=== PATIENT | female | born 1950 | race Caucasian/White ===

== ENCOUNTER 2017-09-07 05:24 | Emergency (ER) | payer MEDICARE, BC ==
[~2017-09-07] VITALS: Ht 165.1 cm; Wt 73.1 kg
[2017-09-07 05:33] VITALS: BP 172/86; PULSE 77; RESP 22; TEMP 97.7; O2SAT 99
[2017-09-07 05:41] VITALS: BP 172/86; PULSE 77; RESP 20; TEMP 97.7; O2SAT 99
[2017-09-07] MEDS ORDERED: SODIUM CHLOR 0.9% 1000 ML INJ 1,000 ML IV SCH (06:05)
[2017-09-07] MEDS ORDERED: HYDROmorphone HCL PF 2 MG/ML VIAL IVS ONE (06:15)
[2017-09-07] MEDS ORDERED: ONDANSETRON HCL 4 MG/2 ML VIAL IVP ONE (06:15)
[2017-09-07] MEDS ORDERED: SODIUM CHLORIDE 0.9% FLUSH 10 ML FLUSH IV FLUSH PRN (06:15)
--- NOTE | 2017-09-07 06:17 | PD ---
HPI Chief Complaint: Flank/Kidney Pain Time Seen by Provider: 06:03 Travel History International Travel<30 days: No Contact w/Intl Traveler<30days: No Traveled to known affect area: No History of Present Illness HPI The patient is a 67-year-old female that had nausea most of the day yesterday. At 10 PM he started vomiting. She denies any blood in the vomitus or stool. She denies any fever. She denies any diarrhea. [facility] Past Medical History High Cholesterol: Yes Diverticulitis: Yes Hypertension: Yes Influenza Vaccination: Yes ?: Not Past Surgical History Gynecologic Surgery: Yes (Radical Hysterectomy for CA) Other Surgery: Yes (Sigmoid colon resection) Social History Alcohol Use: Yes (Occasional ) Tobacco Use: No Substance Use: No Allergies-Medications (Allergen,Severity, Reaction): Coded Allergies: meperidine (Verified Allergy, Unknown, vomiting, 09/07/17) niacin (Verified Allergy, Unknown, hives, 09/07/17) Reported Meds & Prescriptions Reported Meds & Active Scripts Active Reported Zolpidem (Zolpidem Tartrate) 5 Mg Tab 5 Mg PO HS PRN Simvastatin 40 Mg Tab 40 Mg PO HS Atenolol 50 Mg Tab 50 Mg PO DAILY Amlodipine (Amlodipine Besylate) 5 Mg Tab 5 Mg PO DAILY Levothyroxine (Levothyroxine Sodium) 75 Mcg Tab 75 Mcg PO DAILY Diovan Hct (Valsartan-Hydrochlorothiazide) 320-25 Mg Tab 1 Tab PO DAILY Review of Systems Except as stated in HPI: all other systems reviewed are Neg Physical Exam Narrative GENERAL: The patient is alert, oriented 3 in moderate apparent distress with her right flank pain. Her vital signs show blood pressure 172/86 but otherwise are normal. SKIN: Focused skin assessment warm/dry. HEAD: Atraumatic. Normocephalic. EYES: Pupils equal and round. No scleral icterus. No injection or drainage. ENT: No nasal bleeding or discharge. Mucous membranes pink and moist. NECK: Trachea midline. No JVD. CARDIOVASCULAR: Regular rate and rhythm. No murmur appreciated. RESPIRATORY: No accessory muscle use. Clear to auscultation. Breath sounds equal bilaterally. GASTROINTESTINAL: Abdomen soft, with tenderness over the right flank to direct palpation, nondistended. Hepatic and splenic margins not palpable. No guarding or rebound is present. Talamantes's sign is negative. Specifically, there is no right lower quadrant tenderness or tenderness in either lower quadrant. MUSCULOSKELETAL: No obvious deformities. No clubbing. No cyanosis. No edema. NEUROLOGICAL: Awake and alert. No obvious cranial nerve deficits. Motor grossly within normal limits. Normal speech. PSYCHIATRIC: Appropriate mood and affect; insight and judgment normal. Data Data Last Documented VS Vital Signs Date Time Temp Pulse Resp B/P (MAP) Pulse Ox O2 Delivery O2 Flow Rate FiO2 09/07/17 06:56 73 18 145/78 (100) 98 Room Air 09/07/17 05:41 97.7 Orders Orders Complete Blood Count With Diff (09/07/17 06:03) Comprehensive Metabolic Panel (09/07/17 06:03) Lipase (09/07/17 06:03) Urinalysis - C+S If Indicated (09/07/17 06:03) Ct Abd/Pel W Iv Contrast(Rout) (09/07/17 06:03) Iv Access Insert/Monitor (09/07/17 06:03) Ecg Monitoring (09/07/17 06:03) Oximetry (09/07/17 06:03) Sodium Chloride 0.9% Flush (Ns Flush) (09/07/17 06:15) Hydromorphone Pf Inj (Dilaudid Pf Inj) (09/07/17 06:15) Ondansetron Inj (Zofran Inj) (09/07/17 06:15) Sodium Chlor 0.9% 1000 Ml Inj (Ns 1000 M (09/07/17 06:05) Iohexol 350 Inj (Omnipaque 350 Inj) (09/07/17 06:30) Labs Laboratory Tests Test 09/07/17 06:00 White Blood Count 11.9 TH/MM3 Red Blood Count 4.84 MIL/MM3 Hemoglobin 13.7 GM/DL Hematocrit 42.3 % Mean Corpuscular Volume 87.6 FL Mean Corpuscular Hemoglobin 28.4 PG Mean Corpuscular Hemoglobin Concent 32.4 % Red Cell Distribution Width 11.4 % Platelet Count 385 TH/MM3 Mean Platelet Volume 7.0 FL Neutrophils (%) (Auto) 83.2 % Lymphocytes (%) (Auto) 11.1 % Monocytes (%) (Auto) 4.7 % Eosinophils (%) (Auto) 0.7 % Basophils (%) (Auto) 0.3 % Neutrophils # (Auto) 9.9 TH/MM3 Lymphocytes # (Auto) 1.3 TH/MM3 Monocytes # (Auto) 0.6 TH/MM3 Eosinophils # (Auto) 0.1 TH/MM3 Basophils # (Auto) 0.0 TH/MM3 CBC Comment DIFF FINAL Differential Comment Urine Color STRAW Urine Turbidity HAZY Urine pH 8.0 Urine Specific Jack 1.015 Urine Protein TRACE mg/dL Urine Glucose (UA) NEG mg/dL Urine Ketones NEG mg/dL Urine Occult Blood TRACE Urine Nitrite NEG Urine Bilirubin NEG Urine Leukocyte Esterase NEG Urine RBC 3-5 /hpf Urine WBC 3-5 /hpf Urine Squamous Epithelial Cells 0-5 /hpf Urine Amorphous Sediment MOD Urine Bacteria OCC /hpf Microscopic Urinalysis Comment CULT NOT INDICATED Blood Urea Nitrogen 14 MG/DL Creatinine 0.70 MG/DL Random Glucose 156 MG/DL Total Protein 8.2 GM/DL Albumin 4.5 GM/DL Calcium Level 9.6 MG/DL Alkaline Phosphatase 86 U/L Aspartate Amino Transf (AST/SGOT) 19 U/L Alanine Aminotransferase (ALT/SGPT) 22 U/L Total Bilirubin 0.4 MG/DL Sodium Level 129 MEQ/L Potassium Level 3.0 MEQ/L Chloride Level 91 MEQ/L Carbon Dioxide Level 29.7 MEQ/L Anion Gap 8 MEQ/L Estimat Glomerular Filtration Rate 84 ML/MIN Lipase 89 U/L MDM Medical Decision Making Medical Screen Exam Complete: Yes Emergency Medical Condition: Yes Medical Record Reviewed: Yes Interpretation(s) The urine shows hazy turbidity, trace blood and occasional bacteria but is otherwise normal and culture is not indicated. The CT abdomen/pelvis shows multiple gallstones in the gallbladder but no biliary duct obstruction and moderate stool in the colon and no acute pathology. There is no inflammation around the gallbladder. The CBC is normal except for minimal elevation of the white count at 11,900. The complete metabolic profile shows a GFR of 84, glucose 156, sodium of 129, potassium 3.0 but is otherwise normal. The lipase is normal. Differential Diagnosis Pancreatitis, urinary stone, cholecystitis, pyelonephritis, colitis, electrolyte disorder abdominal pain unknown etiology, musculoskeletal pain Narrative Course The patient has abdominal pain of unknown etiology. She is not tender around the gallbladder, she was tender around the posterior ribs and this may be musculoskeletal pain. Plan: The patient be given Zofran 8 mg 3 times daily and Percocet 5/325. She is to follow-up with Dr. Hernandez on Saturday. Diagnosis Primary Impression: Abdominal pain of unknown etiology Additional Instructions: Stick with clear liquids next few days. If worse, you'll need to return to the emergency department. Do not drink alcohol or drive on the Percocet 5. Med/Other Pt SpecificInfo: Prescription(s) given Scripts Oxycodone-Acetaminophen (Percocet) 5-325 mg Tab 1-2 TAB PO Q6H Y for PAIN, #30 TAB 0 Refills Prov: Colt Duque MD 09/07/17 Ondansetron (Zofran) 8 Mg Tab 8 MG PO TID for Nausea/Vomiting, #30 TAB 0 Refills Prov: Colt Duque MD 09/07/17 Disposition: 01 DISCHARGE HOME Condition: Stable Colt Duque MD Sep 07, 2017 06:17
[2017-09-07 06:19] LABS: AUTOMATED NEUTROPHIL # 9.9 TH/MM3 (1.8-7.7); BASOPHIL % 0.3 % (0.0-2.0); EOSINOPHIL # 0.1 TH/MM3 (0-0.4); EOSINOPHIL % 0.7 % (0.0-4.0); HEMATOCRIT 42.3 % (35.0-46.0); HEMOGLOBIN 13.7 GM/DL (11.6-15.3); LYMPH % 11.1 % (9.0-44.0); LYMPHOCYTE # 1.3 TH/MM3 (1.0-4.8); MEAN CELL VOLUME 87.6 FL (80.0-100.0); MEAN CORPUSCULAR HEMOGLOBIN 28.4 PG (27.0-34.0); MEAN CORPUSCULAR HGB CONC 32.4 % (32.0-36.0); MONO % 4.7 % (0.0-8.0); MONOCYTE # 0.6 TH/MM3 (0-0.9); NEUT % 83.2 % (16.0-70.0); PLATELET COUNT 385 TH/MM3 (150-450); RED BLOOD COUNT 4.84 MIL/MM3 (4.00-5.30); RED CELL DISTRIBUTION WIDTH 11.4 % (11.6-17.2); WHITE BLOOD COUNT 11.9 TH/MM3 (4.0-11.0)
[2017-09-07 06:20] LABS: BILIRUBIN, URINE NEG (NEG); GLUCOSE,URINE NEG (NEG); KETONE, URINE NEG (NEG); NITRITE,URINE NEG (NEG); URINE LEUKOCYTE ESTERASE NEG (NEG)
[2017-09-07 06:22] LABS: BLOOD, URINE TRACE (NEG)
[2017-09-07 06:26] LABS: URINE COLOR STRAW (YELLW/STRAW)
[2017-09-07 06:27] LABS: AMORPHOUS SEDIMENT, URINE MOD; BACTERIA, URINE OCC /hpf; SQUAMOUS EPITHELIAL CELL URINE 0-5 /hpf (0-5)
[2017-09-07] MEDS ORDERED: IOHEXOL 350 MG/ML 10 ML VIAL (for RAD DIAG) IVCONTRAST ONE (06:30)
[2017-09-07] MEDS ORDERED: ZOLP5TAB3 PO (06:48)
[2017-09-07] MEDS ORDERED: SIMV40TA PO (06:48)
[2017-09-07] MEDS ORDERED: AMLO5TAB2 PO (06:48)
[2017-09-07] MEDS ORDERED: LEVO75TA3 PO (06:48)
[2017-09-07] MEDS ORDERED: ATEN50TA PO (06:48)
[2017-09-07] MEDS ORDERED: DIOV320T6 PO (06:48)
[2017-09-07 06:54] LABS: ALBUMIN 4.5 GM/DL (3.4-5.0); ALKALINE PHOSPHATASE 86 U/L (45-117); ALT (GPT) 22 U/L (10-53); AST (GOT) 19 U/L (15-37); BICARBONATE 29.7 MEQ/L (21.0-32.0); BLOOD UREA NITROGEN 14 MG/DL (7-18); CALCIUM 9.6 MG/DL (8.5-10.1); CHLORIDE 91 MEQ/L (98-107); GLOMERULAR FILTRATION RATE 84 ML/MIN (>89); GLUCOSE,RANDOM 156 MG/DL (74-106); LIPASE 89 U/L (73-393); SODIUM (NA) 129 MEQ/L (136-145); TOTAL BILIRUBIN ADULT 0.4 MG/DL (0.2-1.0); TOTAL PROTEIN 8.2 GM/DL (6.4-8.2)
[2017-09-07 06:56] VITALS: BP 145/78; PULSE 73; RESP 18; O2SAT 98
--- NOTE | 2017-09-07 06:59 | RADRPT ---
EXAM DATE/TIME: 09/07/2017 06:28 [place] COMPARISON: No previous studies available for comparison. INDICATIONS : Vomiting and right flank pain for 3 days IV CONTRAST: 96 cc Omnipaque 350 (iohexol) IV ORAL CONTRAST: No oral contrast ingested. RADIATION DOSE: 6.89 CTDIvol (mGy) MEDICAL HISTORY : Diverticulitis. Carcinoma, not otherwise specified. Hypertension.endometrial CA SURGICAL HISTORY : Hysterectomy. ENCOUNTER: Initial ACUITY: 3 days PAIN SCALE: 8/10 LOCATION: Right flank TECHNIQUE: Volumetric scanning of the abdomen and pelvis was performed. Using automated exposure control and ad justment of the mA and/or kV according to patient size, radiation dose was kept as low as reasonably achievable to obtain optimal diagnostic quality images. DICOM format image data is available electro nically for review and comparison. FINDINGS: LOWER LUNGS: The visualized lower lungs are clear. LIVER: Homogeneous density without lesion. There is no dilation of the biliary tree. Multiple calcified gal lstones. No inflammatory changes are seen. SPLEEN: Normal size without lesion. PANCREAS: Within normal limits. KIDNEYS: Normal in size and shape. There is no mass, stone or hydronephrosis. ADRENAL GLANDS: Within normal limits. VASCULAR: There is no aortic aneurysm. BOWEL/MESENTERY: The stomach, small bowel, and colon demonstrate no acute abnormality. There is no free intraperitone al air or fluid. The appendix is unremarkable. There is a moderate amount of stool throughout the col on. No inflammatory changes. ABDOMINAL WALL: Within normal limits. RETROPERITONEUM: There is no lymphadenopathy. BLADDER: No wall thickening or mass. REPRODUCTIVE: Within normal limits. INGUINAL: There is no lymphadenopathy or hernia. MUSCULOSKELETAL: Within normal limits for patient age. CONCLUSION: 1. Multiple gallstones in the gallbladder. No biliary tract obstruction. 2. Moderate stool throughout the colon. 3. No acute pathology. Eliecer Rouse MD on September 07, 2017 at 6:55 Board Certified Radiologist. This report was verified electronically.
[2017-09-07] MEDS ORDERED: ZOFR8TAB PO (07:20)
[2017-09-07] MEDS ORDERED: PERC5TAB12 PO (07:20)
== END 2017-09-07 07:36 | disposition home or self-care (01) ==
LOC: PHED 05:24
DX: R10.9 Unspecified abdominal pain (principal); K80.20 Calculus of gallbladder without cholecystitis without obstruction; E78.00 Pure hypercholesterolemia, unspecified; I10 Essential (primary) hypertension
CPT/HCPCS: 74177; 80053; 81001; 83690; 85025; 96361; 96374; 96375; 99285; J1170; J2405; J7030; Q9967

== ENCOUNTER → 2017-10-09 | Outpatient (CLI) | payer MEDICARE, BC ==
[~2017-10-09] MED LIST: AMLO5TAB2 PO; ATEN50TA PO; DIOV320T6 PO; LEVO75TA3 PO; PERC5TAB12 PO; SIMV40TA PO; ZOFR8TAB PO; ZOLP5TAB3 PO
[2017-10-09 09:45] LABS: AMORPHOUS SEDIMENT, URINE RARE; BILIRUBIN, URINE NEG (NEG); BLOOD, URINE NEG (NEG); GLUCOSE,URINE NEG (NEG); KETONE, URINE NEG (NEG); NITRITE,URINE NEG (NEG); URINE COLOR YELLOW (YELLW/STRAW); URINE LEUKOCYTE ESTERASE NEG (NEG)
[2017-10-09 09:58] LABS: ALBUMIN 3.7 GM/DL (3.4-5.0); AST (GOT) 14 U/L (15-37); BICARBONATE 30.5 MEQ/L (21.0-32.0); BLOOD UREA NITROGEN 14 MG/DL (7-18); CALCIUM 9.5 MG/DL (8.5-10.1); CHLORIDE 98 MEQ/L (98-107); CREATININE 0.63 MG/DL (0.50-1.00); GLOMERULAR FILTRATION RATE 95 ML/MIN (>89); GLUCOSE,FASTING 99 MG/DL (74-99); SODIUM (NA) 136 MEQ/L (136-145)
[2017-10-09 09:59] LABS: CHOLESTEROL 141 MG/DL (120-200)
[2017-10-09 10:10] LABS: ALKALINE PHOSPHATASE 78 U/L (45-117); ALT (GPT) 18 U/L (10-53); CHOLESTEROL/ HDL RATIO 2.93 RATIO; HDL CHOLESTEROL 48.1 MG/DL (40.0-60.0); LDL CHOLESTEROL 56 MG/DL (0-99); TOTAL BILIRUBIN ADULT 0.4 MG/DL (0.2-1.0); TOTAL PROTEIN 6.9 GM/DL (6.4-8.2); TRIGLYCERIDES 184 MG/DL (42-150)
== END ==
LOC: PLAB 07:36
PROVIDERS: ATTEND Family Medicine
DX: R94.31 Abnormal electrocardiogram [ECG] [EKG] (principal); R10.9 Unspecified abdominal pain; E03.9 Hypothyroidism, unspecified; E78.5 Hyperlipidemia, unspecified
CPT/HCPCS: 36415; 80053; 80061; 81001; 84443